=== PATIENT | male | born 1995 | race Two or more races ===

== ENCOUNTER 2023-07-04 06:11 | Emergency (ER) | payer BC, OTHER ==
[~2023-07-04] VITALS: Ht 172.7 cm; Wt 172.7 kg
[2023-07-04] MEDS: HYDROcodone-ACET 10/325MG TAB PO ONE (07:43)
[2023-07-04] MEDS: IOHEXOL 300 MG/ML 100ML BOTTLE IJ ONE (08:04)
[2023-07-04] MEDS: SODIUM CHLORIDE 0.9% 1,000 ML IV ONE ×2 (09:30)
[2023-07-04 09:44] VITALS: RESP 21; O2SAT 97
[2023-07-04 09:56] LABS: Basophils # (auto) 0.1 10 ^3/uL (0-0.2); Basophils % (auto) 0.3 % (0.0-2.0); Eosinophils # (auto) 0 10 ^3/uL (0-0.8); Eosinophils % (auto) 0.1 % (0.0-7.0); Hematocrit 43.3 % (41.0-53.0); Hemoglobin 14.3 g/dL (13.5-17.5); Lymphocytes # (auto) 1.6 10 ^3/uL (0.4-5.4); Lymphocytes % (auto) 7.1 % (10.0-50.0); Mean Corpuscular Hemoglobin 28.9 pg (28.0-32.0); Mean Corpuscular Hgb Conc. 32.9 g/dL (32.0-36.0); Mean Corpuscular Volume 87.7 fL (80.0-100.0); Monocytes # (auto) 1.2 10 ^3/uL (0-1.3); Monocytes % (auto) 5.4 % (0.0-12.0); Neutrophils # (auto) 19.5 10 ^3/uL (1.6-8.6); Neutrophils % (auto) 87.1 % (37.0-80.0); Red Blood Cells 4.93 10^6/uL (4.5-5.90); Red Cell Distribution Width 14.1 % (11.8-14.3); White Blood Cell 22.4 10^3/uL (4.4-10.8)
[2023-07-04 10:05] LABS: Chloride 106 mmol/L (98-107); Potassium 4.3 mmol/L (3.5-5.1); Sodium 135 mmol/L (136-145)
[2023-07-04 10:06] LABS: Anion Gap 10 (5-15); Carbon Dioxide 19 mmol/L (20-30)
[2023-07-04 10:07] LABS: Calcium 9.4 mg/dL (8.5-10.1)
[2023-07-04 10:11] LABS: Blood Urea Nitrogen 21 mg/dL (9-23); Glucose 156 mg/dL (74-106)
[2023-07-04] MEDS: HYDROmorphone HCL 2 MG/ML VL/or syr IV ONE (10:15)
[2023-07-04] MEDS: ONDANSETRON HCL 4 MG/2 ML VIAL IV ONE (10:15)
[2023-07-04 10:21] VITALS: BP 105/48; PULSE 117; RESP 28; TEMP 98.2; O2SAT 100
[2023-07-04] MEDS: HYDROmorphone HCL 2 MG/ML VL/or syr ONE (10:25)
[2023-07-04] MEDS: ONDANSETRON HCL 4 MG/2 ML VIAL ONE (10:25)
[2023-07-04 10:49] LABS: Urine Bacteria NONE SEEN /hpf (None Seen); Urine Blood 3+ /uL (Negative); Urine Clarity Clear (Clear); Urine Color Yellow (Yellow); Urine Protein, UAD 1+ (Negative); Urine Specific Gravity 1.027 (1.001-1.035); Urine Urobilinogen Normal (Negative); Urine WBC 2 /hpf (0 - 3); Urine pH 5.5 (5.0-8.0)
== END 2023-07-04 10:50 | disposition short-term general hospital (02) ==
LOC: EDBD 06:11 → ER 06:11
DX: S36.039A Unspecified laceration of spleen, initial encounter (principal); S00.33XA Contusion of nose, initial encounter; E11.9 Type 2 diabetes mellitus without complications; V49.9XXA Car occupant (driver) (passenger) injured in unspecified traffic accident, initial encounter; Y93.89 Activity, other specified; Y92.89 Other specified places as the place of occurrence of the external cause; Y99.8 Other external cause status
CPT/HCPCS: 36415; 70450; 73030; 74177; 80048; 81001; 85025; 86850; 86900; 86901; 96361; 96374; 96375; 99291; J1170; J2405; J7030; Q9967